=== PATIENT | female | born 1950 | race Caucasian/White ===

== ENCOUNTER 2021-03-05 15:46 | Emergency (ER) | payer MEDICARE, OTHER, SELFPAY ==
[2021-03-05 15:46] VITALS: BP 137/84; PULSE 91; RESP 16; TEMP 36.2; O2SAT 98; BMI 25.7
--- NOTE | 2021-03-05 16:01 | EDS_ITS ---
HPI History of Present Illness Chief Complaint: Upper Extremity Injury Informant: patient Narrative Narrative: Patient slipped and fell on wet steps. She landed on her left shoulder feared. She heard a cracking sound. She has pain in that area only. No numbness tingling or weakness. No pain further in the arm elbow forearm or hand. No neck or back pain. She states she might of bumped her head slightly but no loss of consciousness and no headache. She is not on any anticoagulation. She takes 1 medicine for blood pressure only. Holding still and ice makes it better. Any motion makes it worse. Past medical history: High blood pressure Medications: Single hypertension med unknown name No known drug allergies No recent surgeries Lives with . Not drinking. [facility] Medical History (Updated 03/05/21 @ 17:[address] Kamari Carlos MD) Hypertension Home Medications lisinopril 03/05/21 [History Last Taken Unknown] oxycodone-acetaminophen [Percocet] 1 tab PO Q6H PRN 3 Days #12 tab 03/05/21 [Rx Last Taken Unknown] Allergy/AdvReac Type Severity Reaction Status Date / Time No Known Allergies Allergy Verified 03/05/21 15:48 Social History Smoking Status: Former smoker ROS ROS ED Eyes Eyes: Denies blurry vision or change in vision ENT ENT ED: Denies rhinorrhea or sore throat Cardiovascular Cardiovascular: Denies chest pain, palpitations or racing heartbeat Respiratory/Chest Respiratory/Chest: Denies cough or dyspnea Gastrointestinal Gastrointestinal: Denies nausea or vomiting Musculoskeletal Musculoskeletal: Reports other Details: See history of present illness. ; Denies back pain or neck pain Integumentary Denies Abrasions or rash Neurologic Neurologic: Denies headache(s), paresthesias or weakness Hematologic/Lymphatic Hematologic/Lymphatic: Denies easy bleeding or easy bruising EXAM Physical Exam Const Vital Signs: 03/05/21 15:46 Temperature 97.2 F L Temperature Source Temporal Pulse Rate 91 Respiratory Rate 16 Blood Pressure 137/84 H Blood Pressure Mean 101 Pulse Ox 98 Oxygen Delivery Method Room Air Positive well nourished and well developed General Appearance ED: well developed and NAD HEENT normocephalic and atraumatic; Negative for trauma or tenderness Eyes PERRL and EOMs intact bilaterally Neck full ROM and supple General: Negative for tenderness Chest Wall inspection of chest normal and palpation of chest normal Resp normal respiratory effort and clear to auscultation bilaterally Effort and Inspection: Negative for pain with movement Cardio regular rate and regular rhythm GI non-tender Palpation: soft Back/Spine Cervical Spine: Negative for cervical spine tenderness Thoracic Spine / Upper Back: Negative for thoracic spinal tenderness Lumbar Spine / Lower Back: Negative for lumbar spinal tenderness Extremity Extremity Narrative: Patient has tenderness around the proximal humerus. Clavicle and scapula are nontender. Range of motion was not performed. 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 Neuro oriented x3 and no sensory deficits noted Sensorium / Orientation: alert Motor Exam: strength 5/5 throughout Psych mental status grossly normal Skin Lesions: no lesions Rashes: no rashes MDM MDM MDM Narrative Medical decision making narrative: X-rays looked at by me and read by radiology show a mildly impacted proximal humeral fracture. No dislocation. Patient is neurologically intact. We will place her in a sling. We will have her follow-up with orthopedics. I will give her Percocet for pain. If she develops any new symptoms she should return. If the pain is hard to manage or she gets numbness tingling she should also return. Discharge Plan Triage Chief Complaint: Upper Extremity Injury ED Provider: Kamari Carlos Dx/Rx/DC Orders Clinical Impression: Fall from slipping, Left humeral fracture Instructions: Understanding a Humerus Fracture Prescriptions: New oxycodone-acetaminophen [Percocet] 5-325 mg tablet 1 tab PO Q6H PRN (Reason: pain) 3 Days Qty: 12 RF: 0 No Action lisinopril RF: 0 Referrals: Juany Reina [Other] Brad Howell MD [STAFF PHYSICIAN] - 3-5 Days Disposition Disposition: Home, Self Care
--- NOTE | 2021-03-05 16:15 | RAD_ITS ---
EXAM: XR LEFT SHOULDER COMPLETE, 2 OR MORE VIEWS : 1950 CLINICAL INDICATION: trauma TECHNIQUE: Two or more views of the left shoulder. This report was created using [employer] report generation technology. COMPARISON: None. FINDINGS: BONES/JOINTS: There is a mildly impacted fracture of the humeral neck. Preservation of the joint space. No sclerotic or destructive changes observed. SOFT TISSUES: Unremarkable. No soft tissue swelling or gas. No radiopaque foreign body. RAD/Shoulder min 2 Views IMPRESSION: Mildly impacted fracture of the humeral neck. There is no dislocation. at 1650 Reported and signed by: Bj Toussaint MD Electronically Signed: Bj Toussaint MD at 16:49 EDT Tel , Service support ,
[2021-03-05] MEDS: oxyCODONE 5 MG Tablet PO (17:07)
== END 2021-03-05 17:20 | disposition home or self-care (01) ==
PROVIDERS: Emergency Provider Emergency Medicine
DX: S42.202A Unspecified fracture of upper end of left humerus, initial encounter for closed fracture (principal); W10.9XXA Fall (on) (from) unspecified stairs and steps, initial encounter; Y93.9 Activity, unspecified; Y92.9 Unspecified place or not applicable; Y99.9 Unspecified external cause status; I10 Essential (primary) hypertension; Z79.899 Other long term (current) drug therapy; Z87.891 Personal history of nicotine dependence
CPT/HCPCS: 73030; 99283